=== PATIENT | female | born 1990 | race Caucasian/White ===

== ENCOUNTER 2024-03-16 21:12 | Emergency (ER) | payer OTHER ==
[~2024-03-16] VITALS: Ht 175.3 cm; Wt 71.5 kg
[2024-03-16 21:19] VITALS: BP 135/96; PULSE 111; RESP 16; TEMP 98.6; O2SAT 96
[2024-03-16 21:59] LABS: BASOPHILS % (AUTO) 0.6 % (0-1); EOSINOPHILS # (AUTO) 0.2 X10'3 (0-0.9); EOSINOPHILS % (AUTO) 2.8 % (0-6); HEMATOCRIT 38.8 % (35.0-45.0); HEMOGLOBIN 12.9 g/dl (12.0-16.0); LYMPHOCYTES # (AUTO) 3.1 X10'3 (1.1-4.8); LYMPHOCYTES % (AUTO) 50.1 % (21-51); MEAN CORPUSCULAR HEMOGLOBIN 28.8 PG (27.0-31.0); MEAN CORPUSCULAR HGB CONC 33.3 g/dL (33.0-36.5); MEAN CORPUSCULAR VOLUME 86.5 FL (78-98); MEAN PLATELET VOLUME 6.8 FL (7.4-10.4); MONOCYTES # (AUTO) 0.3 X10'3 (0-0.9); MONOCYTES % (AUTO) 4.3 % (2-12); NEUTROPHILS # (AUTO) 2.6 X10'3 (1.8-7.7); NEUTROPHILS % (AUTO) 42.2 % (42-75); PLATELET COUNT 351 X10'3 (140-440); RED BLOOD COUNT 4.49 X10'6 (4.20-5.60); RED CELL DISTRIBUTION WIDTH 17.2 % (11.5-14.5); WHITE BLOOD COUNT 6.1 X10'3 (4.5-11.0)
[2024-03-16 22:23] LABS: ALBUMIN 3.3 G/DL (3.4-5.0); ANION GAP 11 (8-16); BLOOD UREA NITROGEN 11 MG/DL (7-18); BUN/CREATININE RATIO 17.7 (10.0-20.0); CALCIUM 7.6 MG/DL (8.5-10.1); CHLORIDE 105 MMOL/L (99-107); CREATININE 0.62 MG/DL (0.40-0.90); ETHANOL 285 MG/DL (<10); GLUCOSE 96 MG/DL (70-104); POTASSIUM 3.7 MMOL/L (3.5-5.1); SODIUM 140 MMOL/L (135-145); THYROID STIMULATING HORMONE 4.45 ulU/ml (0.34-4.50); TOTAL CARBON DIOXIDE 24.4 MMOL/L (24-32); eCRCL 135 ML/MIN; eGFR > 90 ML/MIN
== END 2024-03-16 23:57 | disposition left against medical advice (07) ==
LOC: ER 21:13
DX: R45.851 Suicidal ideations (principal); Z53.21 Procedure and treatment not carried out due to patient leaving prior to being seen by health care provider
CPT/HCPCS: 36415; 80048; 80320; 84443; 85025; 87811

== ENCOUNTER 2024-07-22 03:42 | Emergency (ER) | payer MEDICAID ==
[~2024-07-22] VITALS: Ht 175.3 cm; Wt 95.0 kg
[2024-07-22] MEDS: LORazepam 2 mg/ml vial IV ONE (04:17)
[2024-07-22] MEDS: normal saline 1000ml 1,000 ML IV ONE (04:17)
[2024-07-22 04:31] LABS: BASOPHILS % (AUTO) 0.5 % (0-1); EOSINOPHILS # (AUTO) 0.1 X10'3 (0-0.9); HEMATOCRIT 42.3 % (35.0-45.0); HEMOGLOBIN 13.3 g/dl (12.0-16.0); LYMPHOCYTES # (AUTO) 3.2 X10'3 (1.1-4.8); LYMPHOCYTES % (AUTO) 50.5 % (21-51); MEAN CORPUSCULAR HGB CONC 31.5 g/dL (33.0-36.5); MEAN CORPUSCULAR VOLUME 92.1 FL (78-98); MEAN PLATELET VOLUME 7.7 FL (7.4-10.4); MONOCYTES # (AUTO) 0.8 X10'3 (0-0.9); MONOCYTES % (AUTO) 12.7 % (2-12); NEUTROPHILS # (AUTO) 2.2 X10'3 (1.8-7.7); NEUTROPHILS % (AUTO) 34.3 % (42-75); PLATELET COUNT 140 X10'3 (140-440); RED BLOOD COUNT 4.59 X10'6 (4.20-5.60); RED CELL DISTRIBUTION WIDTH 20.9 % (11.5-14.5); WHITE BLOOD COUNT 6.4 X10'3 (4.5-11.0)
[2024-07-22 04:42] LABS: ALANINE AMINOTRANSFERASE 141 U/L (12-78); ALBUMIN 2.4 G/DL (3.4-5.0); ALKALINE PHOSPHATASE 156 IU/L (46-116); ANION GAP 8 (8-16); BILIRUBIN,TOTAL 2.8 MG/DL (0.1-1.0); BLOOD UREA NITROGEN 10 MG/DL (7-18); BUN/CREATININE RATIO 13.5 (10.0-20.0); CALCIUM 7.1 MG/DL (8.5-10.1); CHLORIDE 107 MMOL/L (99-107); CREATININE 0.74 MG/DL (0.40-0.90); GLUCOSE 124 MG/DL (70-104); LIPASE 68 U/L (16-77); MAGNESIUM 2.1 MG/DL (1.5-2.4); SODIUM 141 MMOL/L (135-145); TOTAL CARBON DIOXIDE 26.1 MMOL/L (24-32); eCRCL 113 ML/MIN; eGFR 90 ML/MIN
[2024-07-22] MEDS ORDERED: CHLO25CA10 PO (04:42)
[2024-07-22 04:46] LABS: ALBUMIN/GLOBULIN RATIO 0.8 (1.1-1.5); POTASSIUM 3.6 MMOL/L (3.5-5.1); TOTAL PROTEIN 5.6 G/DL (6.4-8.2)
[2024-07-22 05:02] LABS: ASPARTATE AMINO TRANSFERASE 185 U/L (10-37)
[2024-07-22 05:06] LABS: ANISOCYTOSIS 3+; PLATELET ESTIMATE NORMAL; STOMATOCYTES 1+; TARGET CELLS 2+
[2024-07-22] MEDS: chlordiazePOXIDE 25mg capsule PO ONE (05:19)
[2024-07-22 05:26] VITALS: BP 107/71; PULSE 91; RESP 16; TEMP 98.1; O2SAT 99
== END 2024-07-22 05:30 | disposition home or self-care (01) ==
LOC: ER 03:43
DX: F10.239 Alcohol dependence with withdrawal, unspecified (principal); R45.1 Restlessness and agitation; G47.09 Other insomnia; G25.2 Other specified forms of tremor; Z88.1 Allergy status to other antibiotic agents
CPT/HCPCS: 36415; 80053; 83690; 83735; 85008; 85025; 96361; 96374; 99283; J2060; J7030

== ENCOUNTER 2024-07-22 21:23 | Emergency (ER) | payer MEDICAID ==
[~2024-07-22] VITALS: Ht 177.8 cm; Wt 72.7 kg
[~2024-07-22 21:23] MED LIST: CHLO25CA10 PO
[2024-07-22 21:25] VITALS: BP 118/79; PULSE 90; RESP 18; TEMP 98.8; O2SAT 99
== END 2024-07-23 00:48 | disposition left against medical advice (07) ==
LOC: ER 21:24
DX: F10.239 Alcohol dependence with withdrawal, unspecified (principal); Z76.0 Encounter for issue of repeat prescription; Z88.1 Allergy status to other antibiotic agents; Z53.21 Procedure and treatment not carried out due to patient leaving prior to being seen by health care provider